=== PATIENT | female | born 1965 | race Caucasian/White ===

== ENCOUNTER 2020-08-22 01:29 | Inpatient (IN) | payer SELFPAY ==
[2020-08-22 01:43] VITALS: BP 131/91; PULSE 80; RESP 18; TEMP 36.7; O2SAT 96; BMI 17.4
[2020-08-22 02:42] LABS: Basophils % 0.6 %; Eosinophils # 0.1 10^3/uL (0.0-0.8); Eosinophils % 1.8 %; Hematocrit 45.7 % (37.0-47.0); Hemoglobin 14.7 g/dL (11.5-15.3); Lymphocytes # 2.1 10^3/uL (0.8-4.8); Lymphocytes % 40.6 %; Mean Corpuscular HGB Conc 32.2 g/dL (30.0-36.0); Mean Corpuscular Hemoglobin 31.8 pg (28.0-34.0); Mean Corpuscular Volume 98.9 fL (81-99); Mean Platelet Volume 9.8 fL (7.4-10.4); Monocytes # 0.5 10^3/uL (0.2-0.9); Monocytes % 9.2 %; Neutrophils # 2.44 10^3/uL (1.8-7.7); Neutrophils % 47.6 %; Nucleated Red Blood Cells % 0 %; Platelet Count 302 10^3/cmm (130-400); Red Blood Count 4.62 10^6/uL (4.1-5.3); Red Cell Distribution Width 13.3 % (12.1-15.1); White Blood Count 5.1 10^3/uL (4.0-10.0)
--- NOTE | 2020-08-22 02:50 | ED_ITS ---
HPI - Psych General: Chief Complaint: Psychiatric Symptoms Stated Complaint: 96 hr hold Time Seen by Provider: 08/22/20 02:05 History of Present Illness: HPI Narrative: 54-year-old female who is homeless. Evidently her dog was taken from her tonight in [facility]. She was at the police station, and asked for one of the deputies guns, so she could blow her head off . She comes in as a court ordered 96-hour hold because of the statements. She denies any pain or significant illness. She denies any medical problems. She does state she drinks daily. complaint: suicidal ideation and feels depressed Onset (ago): hour(s) Duration: constant History of same: No Relieving factors: none Exacerbating factors: none Context: recent alcohol abuse Associated psychiatric symptoms: depression and suicidal ideation Associated symptoms: Deny homicidal ideation Treatments prior to arrival: placed on mental health hold If self harm: admits thoughts of self harm Review of Systems Const: Denies: fever(s) Eyes: Denies: change in vision Card: Denies: chest pain or palpitations Resp: Denies: dyspnea, productive cough or non-productive cough GI: Denies: abdominal pain, nausea, vomiting or diarrhea Neuro: Denies: headache(s) Psych: Denies: homicidal ideation Physical Exam Const: GENERAL APPEARANCE: cooperative NUTRITIONAL APPEARANCE: thin ORIENTATION/CONSCIOUSNESS: Yes oriented to person, Yes oriented to place and Yes oriented to time HENMT: COMMON NORMALS: normocephalic, external ears normal and Normal external nose present HEAD & SCALP: normocephalic FACE & SINUS: normal facial exam NOSE: Normal external nose present and No nasal discharge present EXTERNAL EAR: Yes external ears normal Eye: COMMON NORMALS: Equal, round and reactive pupils present, EOMs intact bilaterally and conjunctivae normal EYELID: eyelids normal CONJUNCTIVA: Yes conjunctivae normal PUPIL: Yes Equal, round and reactive pupils present Neck/C-Spine: GENERAL: No tracheal deviation Chest: COMMONS NORMALS: normal inspection of the chest CHEST: No tenderness Resp: COMMON NORMALS: clear to auscultation bilaterally EFFORT & INSPECTION: No tachypneic, No respiratory distress, No retractions, No uses accessory muscles and No tracheal deviation AUSCULTATION: clear to auscultation bilaterally, no rhonchi, wheezes and lung sounds not diminished Cardio: COMMON NORMALS: regular rate and regular rhythm RATE: regular rate RHYTHM: regular rhythm HEART SOUNDS: no murmurs PERIPHERAL PULSES: radial pulses present GI: INSPECTION: No abdominal distension AUSCULTATION: No Hyperactive bowel sounds present and No Hypoactive bowel sounds present PALPATION: No Guarding due to palpation present (GI) and No Rigid due to palpation Neuro: SENSORIUM/ORIENTATION: Yes oriented to person, Yes oriented to place and Yes oriented to time Psych: COMMON NORMALS: mental status grossly normal Skin: COMMON NORMALS: no rashes or lesions noted GENERAL SKIN EXAM: no rashes or lesions noted Course Consultations: Consultation #1: yaniv Vital Signs: Vital signs: Vital Signs Temperature 98.0 F 08/22/20 01:43 Pulse Rate 80 08/22/20 01:43 Respiratory Rate 18 08/22/20 01:43 Blood Pressure 131/91 08/22/20 01:43 Pulse Oximetry 96 08/22/20 01:43 MDM - Psych MDM Narrative: Medical decision making narrative: 54-year-old female with suicidal ideation. She is medically stable. She does however have a urinary tract infection. She will be treated with oral antibiotics. Spoke with psychiatry. Lab Data: Labs: Lab Results 08/22/20 08/22/20 08/22/20 Range/Units 02:10 02:10 02:15 WBC 5.1 (4.0-10.0) 10^3/ uL RBC 4.62 (4.1-5.3) 10^6/u L Hgb 14.7 (11.5-15.3) g/dL Hct 45.7 (37.0-47.0) % MCV 98.9 (81-99) fL MCH 31.8 (28.0-34.0) pg MCHC 32.2 (30.0-36.0) g/dL RDW 13.3 (12.1-15.1) % Plt Count 302 (130-400) 10^3/c mm MPV 9.8 (7.4-10.4) fL Neut % (Auto) 47.6 % Lymph % (Auto) 40.6 % Tyler % (Auto) 9.2 % Eos % (Auto) 1.8 % Baso % (Auto) 0.6 % Neut # (Auto) 2.44 (1.8-7.7) 10^3/u L Lymph # (Auto) 2.1 (0.8-4.8) 10^3/u L Tyler # (Auto) 0.5 (0.2-0.9) 10^3/u L Eos # (Auto) 0.1 (0.0-0.8) 10^3/u L Baso # (Auto) 0.0 (0.0-0.1) 10^3/u L Nucleated RBC % (a uto) 0 % Nucleated RBCs # 0.0 /100WBC Sodium 144 (136-145) mmol/L Potassium 3.8 (3.5-5.1) mmol/L Chloride 109 H (98-107) mmol/L Carbon Dioxide 26 (22-29) mmol/L Anion Gap 12.8 (5-19) BUN 12 (6-20) mg/dL Creatinine 0.5 (0.5-0.9) mg/dL GFR Calculation 129.6 (90-130) mL/min Glucose 97 (65-115) mg/dL Calculated Osmolal ity 298 H (285-295) mOsm/k g Calcium 8.3 L (8.5-10.5) mg/dL Total Bilirubin 0.2 (0.15-1.2) mg/dL AST 18 (0-32) U/L ALT 17 (0-33) U/L Alkaline Phosphata se 123 H (35-105) IU/L Total Protein 7.9 (6.6-8.7) g/dL Albumin 4.4 (3.5-5.2) g/dL Globulin 3.5 (1.3-4.6) g/dL Urine Color (Yellow) Urine Appearance (CLEAR) Urine pH (5-7) Ur Specific Gravit y (1.005-1.030) Urine Protein (Negative) Urine Glucose (UA) (Normal) Urine Ketones (Negative) Urine Blood (Negative) Urine Nitrate (Negative) Urine Bilirubin (Negative) Urine Urobilinogen (Negative) mg/dL Ur Leukocyte Daina ase (Negative) Urine RBC (0-2) /hpf Urine WBC (0-5) /hpf Ur Squamous Epith Cells (0-5) /hpf Amorphous Sediment Urine Bacteria (NONE) /hpf Urine Mucus /hpf Salicylates < 0.3 L (3-10) mg/dL Urine Opiates Scre en (Negative) ng/mL Acetaminophen < 5.0 L (10-30) ug/mL Ur Barbiturates Sc reen (Negative) ng/mL Ur Phencyclidine S crn (Negative) ng/mL Ur Amphetamines Sc reen (Negative) ng/mL U Benzodiazepines Scrn (Negative) ng/mL Urine Cocaine Scre en (Negative) ng/mL U Marijuana (THC) Screen (Negative) ng/mL Ethyl Alcohol 117 H (0-10) mg/dL SARS-CoV-2 Ag (Rap id) Negative (Negative) 08/22/20 08/22/20 Range/Units 02:15 02:15 WBC (4.0-10.0) 10^3/ uL RBC (4.1-5.3) 10^6/u L Hgb (11.5-15.3) g/dL Hct (37.0-47.0) % MCV (81-99) fL MCH (28.0-34.0) pg MCHC (30.0-36.0) g/dL RDW (12.1-15.1) % Plt Count (130-400) 10^3/c mm MPV (7.4-10.4) fL Neut % (Auto) % Lymph % (Auto) % Tyler % (Auto) % Eos % (Auto) % Baso % (Auto) % Neut # (Auto) (1.8-7.7) 10^3/u L Lymph # (Auto) (0.8-4.8) 10^3/u L Tyler # (Auto) (0.2-0.9) 10^3/u L Eos # (Auto) (0.0-0.8) 10^3/u L Baso # (Auto) (0.0-0.1) 10^3/u L Nucleated RBC % (a uto) % Nucleated RBCs # /100WBC Sodium (136-145) mmol/L Potassium (3.5-5.1) mmol/L Chloride (98-107) mmol/L Carbon Dioxide (22-29) mmol/L Anion Gap (5-19) BUN (6-20) mg/dL Creatinine (0.5-0.9) mg/dL GFR Calculation (90-130) mL/min Glucose (65-115) mg/dL Calculated Osmolal ity (285-295) mOsm/k g Calcium (8.5-10.5) mg/dL Total Bilirubin (0.15-1.2) mg/dL AST (0-32) U/L ALT (0-33) U/L Alkaline Phosphata se (35-105) IU/L Total Protein (6.6-8.7) g/dL Albumin (3.5-5.2) g/dL Globulin (1.3-4.6) g/dL Urine Color Yellow (Yellow) Urine Appearance Sl hazy (CLEAR) Urine pH 5 (5-7) Ur Specific Gravit y 1.025 (1.005-1.030) Urine Protein Neg (Negative) Urine Glucose (UA) Norm (Normal) Urine Ketones Negative (Negative) Urine Blood Neg (Negative) Urine Nitrate Negative (Negative) Urine Bilirubin Neg (Negative) Urine Urobilinogen Norm (Negative) mg/dL Ur Leukocyte Daina ase 1+ H (Negative) Urine RBC 0-4 H (0-2) /hpf Urine WBC 15-25 H (0-5) /hpf Ur Squamous Epith Cells 25-40 H (0-5) /hpf Amorphous Sediment Not Reportable Urine Bacteria 2+ H (NONE) /hpf Urine Mucus 1+ /hpf Salicylates (3-10) mg/dL Urine Opiates Scre en Negative (Negative) ng/mL Acetaminophen (10-30) ug/mL Ur Barbiturates Sc reen Negative (Negative) ng/mL Ur Phencyclidine S crn Negative (Negative) ng/mL Ur Amphetamines Sc reen Positive H (Negative) ng/mL U Benzodiazepines Scrn Negative (Negative) ng/mL Urine Cocaine Scre en Negative (Negative) ng/mL U Marijuana (THC) Screen Positive H (Negative) ng/mL Ethyl Alcohol (0-10) mg/dL SARS-CoV-2 Ag (Rap id) (Negative) Discharge Plan Discharge Patient Disposition: Admitted As Inpatient Clinical Impression: Suicidal ideation Urinary tract infection Qualifiers: Urinary tract infection type: acute cystitis Hematuria presence: without hematuria Qualified Code(s): N30.00 - Acute cystitis without hematuria Condition: Stable Coding Level of Care Code ED Family Consultant for [facility] Fwd Exam Comprehensive
[2020-08-22 02:57] LABS: Amphetamines Screen Urine Positive (Negative); Barbiturates Screen Urine Negative (Negative); Benzodiazepines Screen Urine Negative (Negative); Cocaine Screen Urine Negative (Negative); Opiate Screen Urine Negative (Negative); PCP Screen Urine Negative (Negative); THC Screen Urine Positive (Negative)
[2020-08-22 02:58] LABS: Add Urine Microscopic? YES; Bilirubin Urine Neg (Negative); Blood Urine Neg (Negative); Glucose Urine UA Norm (Normal); Ketones Urine Negative (Negative); Leukocyte Esterase Urine 1+ (Negative); Nitrate Urine Negative (Negative); Protein Urine Neg (Negative); Specific Gravity, Urine 1.025 (1.005-1.030); Urine Appearance SL Hazy (CLEAR); Urine Color Yellow (Yellow); Urobilinogen Urine Norm (Negative); pH Urine 5 (5-7)
[2020-08-22 02:59] LABS: Add Urine Culture? No; Bacteria Urine 2+ /hpf; Mucus Urine 1+ /hpf; RBC Urine 0-4 /hpf (0-2); Squamous Epithelial Cell Urine 25-40 /hpf (0-5); WBC Urine 15-25 /hpf (0-5)
[2020-08-22 03:00] LABS: SARS Covid-2 Antigen Negative (Negative)
[2020-08-22 03:07] LABS: Alanine Aminotransferase 17 U/L (0-33); Albumin Level 4.4 g/dL (3.5-5.2); Alcohol Level 117 mg/dL (0-10); Alkaline Phosphatase 123 IU/L (35-105); Anion Gap 12.8 (5-19); Aspartate Amino Transferase 18 U/L (0-32); Blood Urea Nitrogen 12 mg/dL (6-20); Calcium 8.3 mg/dL (8.5-10.5); Carbon Dioxide 26 mmol/L (22-29); Chloride 109 mmol/L (98-107); Globulin 3.5 g/dL (1.3-4.6); Glomerular Filtration Rate 129.6 mL/min (90-130); Glucose 97 mg/dL (65-115); Osmolality Calculated 298 mOsm/kg (285-295); Potassium 3.8 mmol/L (3.5-5.1); Sodium 144 mmol/L (136-145); Total Bilirubin 0.2 mg/dL (0.15-1.2); Total Protein 7.9 g/dL (6.6-8.7)
[2020-08-22 03:16] LABS: Acetaminophen < 5.0 ug/mL (10-30); Salicylate < 0.3 mg/dL (3-10)
[2020-08-22] MEDS: sulfamethoxazole-trimeth DS 160-800 mg Tablet 1 TAB PO ×2 (03:48→08:22)
[2020-08-22 03:59] VITALS: BP 132/78; PULSE 112; RESP 18; O2SAT 99
[2020-08-22 04:02] VITALS: BP 120/85; PULSE 97; RESP 20; TEMP 36.6; O2SAT 97; BMI 17.4
[2020-08-22 06:00] VITALS: BMI 17.4
--- NOTE | 2020-08-22 12:24 | PM.NHP ---
Providers/Chief Complaint Admitting Physician: Kaya Solis DO Chief Complaint: 96 hr hold HPI NPU History of Present Illness Ifeanyi Valentine is a 54 year old female with no past psychiatric history presented to the emergency department by police after reportedly saying that she wanted to kill herself after she was from her dog. Patient has no past psychiatric hospitalizations and has no past suicide attempts and reports no past treatment for psychiatric symptoms. Patient states that she has never experienced any sustained depressive symptoms in the past. 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 After finding her way back home she states that someone had called the dairy manager on her stating that she was being combative. Patient states that she had recently used marijuana and methamphetamine but denies experiencing any agitation and also reports daily alcohol use of about a pint of vodka a day. Patient currently denying any depressive symptoms, denying any suicidal ideation. She denies any psychotic symptoms. She denies any alcohol withdrawal symptoms. Psychiatric review of systems is otherwise negative Patient reports interest in post discharge substance counseling/treatment but also would like to coordinate for care of her dog and states that she currently has no place to go. Review of Systems General: Reports: 10 or more systems reviewed and unremarkable except in HPI and below Meds NPU Home Medications Medication Instructions Recorded Confirmed Last Taken Type No Known Home Medications 08/22/20 08/22/20 Unknown History Allergies Allergy/AdvReac Type Severity Reaction Status Date / Time No Known Allergies Allergy Verified 08/22/20 01:43 [facility] NPU Other Psychiatric History: Other Psychiatric History: Denies any past psychiatric treatment Denies any history of psychiatric hospitalizations Denies any history of suicide attempts or self-harm behavior Mental Status Exam MSE Comments: Appears older than stated age, wearing glasses, appropriately dressed, calm, cooperative, occasionally tearful when talking about her dog Psychomotor activity is neither increased or decreased, no agitation Speech is normal rate and volume, spontaneous, fair articulation, not pressured I am upset, congruent affect not labile but occasionally tearful Alert, oriented to person, place, time, situation Memory and concentration appear to be intact per interview Intellectual functioning appears to be average based on vocabulary, interview Thought process, linear, no flight of ideas, no looseness of associations Thought content, no delusions, no hallucinations, no suicidal or homicidal ideation Insight and judgment appear to be intact Vitals/I&O/Wt Last Vital Signs Temp 97.8 F 08/22/20 04:02 Pulse 97 08/22/20 04:02 Resp 20 H 08/22/20 04:02 BP 120/85 08/22/20 04:02 Pulse Ox 97 08/22/20 04:02 Weight last 48 hrs Weight 56.699 kg Weight 56.699 kg Weight 56.699 kg Data NPU : 08/22/20 02:10 08/22/20 02:10 A&P Assessment and plan (1) Suicidal ideation: Status: Acute (2) Polysubstance abuse: Status: Acute (3) Alcohol intoxication: Status: Acute (4) Alcohol dependence: Status: Acute (5) Adjustment disorder with mixed disturbance of emotions and conduct: Status: Acute (6) Urinary tract infection: Status: Acute Qualifiers: Hematuria presence: without hematuria Urinary tract infection type: acute cystitis Qualified Code(s): N30.00 - Acute cystitis without hematuria Additional A&P Information Patient reportedly agitated in the context of an acute stressor with alcohol intoxication, recent use of methamphetamine and cannabis with no past psychiatric history and no current report of any psychiatric symptoms interested in post discharge substance treatment/counseling. INVOLUNTARY ADMIT to inpatient psychiatry START CIWA for any alcohol withdrawal symptoms START citalopram 20 mg daily targeting anxiety symptoms Coordinate with social science analyst for post discharge substance counseling/treatment Involuntary Hold Information 96 Hour Hold: 96 Hour Involuntary Admission: Yes 96 Hour Hold Ending Date: 08/27/20 96 Hour Hold Ending Time: 00:01 Attestations NPU Medical Necessity Statement*: Psychiatric hospitalization is indicated for medication stabilization, coordination for safe discharge Anticipate hospital stay to exceed 2 midnights Time Spent in Patient Care: Greater than 35 minutes (>than 50% of time spent in counselling and/or direct pt care on unit). Coding Level of Care Code Acute Tobacco Primer Machine Operator for Srin[facility] Keenan Diagnoses Suicidal ideation R45.851 Polysubstance abuse F19.10 Alcohol intoxication F10.929 Alcohol dependence F10.20 Adjustment disorder with mixed disturbance of emotions and conduct F43.25 Urinary tract infection N30.00 Hematuria presence: without hematuria Urinary tract infection type: acute cystitis
[2020-08-22] MEDS: citalopram 20 mg Tablet PO (13:46)
[2020-08-22 14:00] VITALS: BP 126/78; PULSE 64; RESP 18; TEMP 36.9; O2SAT 97
[2020-08-22] MEDS: nicotine 21 mg Patch 1 PATCH TRANSDERMA (15:56)
[2020-08-22] MEDS: nitrofurantoin SR (BID) 100 mg Capsule PO (17:19)
[2020-08-22] MEDS: trazodone 50 mg Tablet PO (20:09)
--- NOTE | 2020-08-22 20:47 | PC.NURSE ---
Pt requested sleep med, Trazodone 50mg po given.
[2020-08-22 21:57] VITALS: BP 125/84; PULSE 75; RESP 18; TEMP 36.8; O2SAT 96
[2020-08-23 05:43] VITALS: BP 118/76; PULSE 68; RESP 17; TEMP 36.9; O2SAT 97
[2020-08-23] MEDS: citalopram 20 mg Tablet PO (08:55)
[2020-08-23] MEDS: nitrofurantoin SR (BID) 100 mg Capsule PO ×2 (08:55→16:59)
[2020-08-23] MEDS: thiamine 100 mg Tablet PO (08:55)
[2020-08-23] MEDS: multivitamin therapeutic Tablet 1 TAB PO (08:55)
[2020-08-23] MEDS: folic acid 1 mg Tablet PO (08:55)
[2020-08-23] MEDS: nicotine 21 mg Patch 1 PATCH TRANSDERMA (10:22)
--- NOTE | 2020-08-23 12:25 | PM.NPN ---
Subjective NPU Subjective: Interval history: Denies any interval depressive symptoms, denies any suicidal ideation Denies any interval anxiety symptoms Reports being compliant with medication, denies any medication side effects Per staff report, no interval behavioral disturbances Mental Status Exam MSE Comments: Sitting up on her bed, calm, cooperative, appropriately groomed and dressed, good eye contact Psychomotor activity is neither increased or decreased, no agitation Speech is normal rate and volume, spontaneous, fair articulation, not pressured I feel a lot better, congruent affect, smiles appropriately at times during interview, not labile Alert, oriented to person, place, time, situation Memory and concentration appear to be intact per interview Intellectual functioning appears to be average based on vocabulary, interview Thought process, linear, no flight of ideas, no looseness of associations Thought content, no delusions, no hallucinations, no suicidal or homicidal ideation Insight and judgment appear to be intact Vitals/I&O/Wt Last Vital Signs Temp 98.4 F 08/23/20 05:43 Pulse 68 08/23/20 05:43 Resp 17 08/23/20 05:43 BP 118/76 08/23/20 05:43 Pulse Ox 97 08/23/20 05:43 Weight last 48 hrs Weight 56.699 kg Weight 56.699 kg Weight 56.699 kg Data NPU : 08/22/20 02:10 08/22/20 02:10 A&P Assessment and plan (1) Suicidal ideation: Status: Acute (2) Adjustment disorder with mixed disturbance of emotions and conduct: Status: Acute (3) Alcohol intoxication: Status: Acute (4) Alcohol dependence: Status: Acute (5) Polysubstance abuse: Status: Acute Additional A&P Information Reports significant improvement in mood, denies any alcohol withdrawal symptoms continue current medication, continue to monitor Involuntary Hold Information 96 Hour Hold: 96 Hour Involuntary Admission: Yes 96 Hour Hold Ending Date: 08/27/20 96 Hour Hold Ending Time: 00:01 Attestations NPU Medical Necessity Statement*: Continues to require psychiatric hospitalization for medication stabilization Coding Level of Care Code Acute Broadcast Operations Technician for Srin[facility] Keenan Diagnoses Suicidal ideation R45.851 Adjustment disorder with mixed disturbance of emotions and conduct F43.25 Alcohol intoxication F10.929 Alcohol dependence F10.20 Polysubstance abuse F19.10
[2020-08-23 14:00] VITALS: BP 118/72; PULSE 79; RESP 17; TEMP 36.7; O2SAT 97
[2020-08-23] MEDS: OLANZapine 5 mg ODT PO (15:55)
[2020-08-23] MEDS: trazodone 50 mg Tablet PO (21:29)
--- NOTE | 2020-08-23 21:50 | PC.NURSE ---
pt requested sleep aide, Trazodone 50mg po given.
[2020-08-23 21:57] VITALS: BP 108/72; PULSE 80; RESP 18; TEMP 35.9; O2SAT 96
[2020-08-24 06:00] VITALS: BP 108/73; PULSE 72; RESP 18; TEMP 36.4; O2SAT 97
[2020-08-24] MEDS: nitrofurantoin SR (BID) 100 mg Capsule PO (08:51)
[2020-08-24] MEDS: multivitamin therapeutic Tablet 1 TAB PO (08:51)
[2020-08-24] MEDS: thiamine 100 mg Tablet PO (08:51)
[2020-08-24] MEDS: citalopram 20 mg Tablet PO (08:51)
[2020-08-24] MEDS: folic acid 1 mg Tablet PO (08:51)
--- NOTE | 2020-08-24 09:21 | P.DS_ITS ---
Diagnoses at Discharge Discharge Diagnosis (1) Suicidal ideation: Status: Acute (2) Adjustment disorder with mixed disturbance of emotions and conduct: Status: Acute (3) Alcohol intoxication: Status: Acute (4) Alcohol dependence: Status: Acute (5) Polysubstance abuse: Status: Acute Reason for Visit Reason for Visit: 96 hr hold Hospital Course Hospital Course 54 year old female with no past psychiatric history presented to the emergency department by police after reportedly saying that she wanted to kill herself after she was from her dog. Patient has no past psychiatric hospitali zations and has no past suicide attempts and reports no past treatment for psychiatric symptoms. Patient denied any suicidal ideation at the time of her initial evaluation and denied any recent sustained depressive symptoms. 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 Patient quickly reconstituted and was started on citalopram 20 mg daily which she tolerated well with no reports of any medication side effects. Patient participate in unit milieu with no reports of any behavioral disturbances. At the time of discharge, patient was not suicidal and was not endorsing any psychiatric symptoms and did not appear to pose an imminent threat of harm to self or others. Low to moderate risk of harm to self given no current suicidal ideation and no current endorsement of psychiatric symptoms although her risk may be elevated if she continues to abuse alcohol and substances leading to unexpected, impulsive behavior. Risk mitigation included psychiatric hospitalization, medication stabilization, recommendation to abstain from the use of alcohol and substances as well as the need for compliance with medication, medication management and substance counseling/treatment follow-up. Patient was able to communicate her understanding of the need to abstain from use of alcohol and substances as well as the need for compliance with her medication, medication management and substance counseling/treatment in order to further mitigate her risk of harm to self and others. Involuntary Hold Information 96 Hour Hold: 96 Hour Involuntary Admission: Yes 96 Hour Hold Ending Date: 08/27/20 96 Hour Hold Ending Time: 00:01 Mental Status Exam MSE Comments: Appropriately groomed and dressed, polite, interactive, good eye contact Psychomotor activity is neither increased or decreased, no agitation Speech is normal rate and volume, spontaneous, fair articulation, not pressured I feel good, congruent affect, not labile Alert, oriented to person, place, time, situation Memory and concentration appear to be intact per interview Thought process, linear, no flight of ideas, no looseness of associations Thought content, no delusions, no hallucinations, no suicidal or homicidal ideation Insight and judgment appear to be intact Discharge Data Vitals: Last Vital Signs Temp 97.5 F L 08/24/20 06:00 Pulse 72 08/24/20 06:00 Resp 18 08/24/20 06:00 BP 108/73 08/24/20 06:00 Pulse Ox 97 08/24/20 06:00 Discharge Plan Discharge Patient Disposition: Home Condition: Stable Prescriptions: New multivitamin with folic acid [Thera] 400 mcg Tablet 1 tab PO DAILY Qty: 30 RF: 0 nitrofurantoin monohyd/m-cryst 100 mg Capsule 100 mg PO BID Qty: 14 RF: 0 citalopram 20 mg Tablet 20 mg PO DAILY Qty: 30 RF: 0 No Action No Known Home Medications RF: 0 Discharge Orders: Discharge Order (Routine); Ordered 08/24/20 Ordered By: Kaya Solis Referrals: [facility], [facility] [Other] (Walk-in Tuesdays or between 7:30am and 3pm for initial assessment. This is where you can get a enrollment management manager.) Discharge Diet: Regular Discharge Activity: Resume usual activity Patient Instructions: Opioid Safety Discharge Attestations NPU Time Spent in Discharge Care*: greater than 30 min Status at Discharge: Cognitive status at discharge: cognitively intact , Behavioral status at discharge: cooperative , Functional status at discharge: independent ambulation Overall status at discharge: patient is back to baseline Coding Level of Care Code Acute Chg FW DC note Diagnoses Suicidal ideation R45.851 Adjustment disorder with mixed disturbance of emotions and conduct F43.25 Alcohol intoxication F10.929 Alcohol dependence F10.20 Polysubstance abuse F19.10
[2020-08-24 09:36] VITALS: BP 108/73; PULSE 72; RESP 18; TEMP 36.4; O2SAT 97
== END 2020-08-24 11:19 | disposition home or self-care (01) | DRG 882 ==
LOC: ER 03:21 → NP 03:53
PROVIDERS: Admitting Provider Psychiatry & Neurology Psychiatry; Emergency Provider Emergency Medicine; Visit Provider Psychiatry & Neurology Psychiatry
DX: F43.25 Adjustment disorder with mixed disturbance of emotions and conduct (principal); R45.851 Suicidal ideations; N30.00 Acute cystitis without hematuria; F19.10 Other psychoactive substance abuse, uncomplicated; F10.229 Alcohol dependence with intoxication, unspecified; Y90.5 Blood alcohol level of 100-119 mg/100 ml
CPT/HCPCS: 80053; 80306; 80307; 81001; 85025; 87426; 99285

== ENCOUNTER 2022-10-17 22:14 | Inpatient (IN) | payer OTHER, SELFPAY ==
[2022-10-17 22:14] VITALS: BP 136/86; PULSE 85; RESP 18; TEMP 36.9; O2SAT 97; BMI 17.4
--- NOTE | 2022-10-17 22:34 | XRR_ITS ---
PROCEDURE INFORMATION: Exam: XR Chest Exam date and time: 10/17/2022 10:39 PM Age: 57 years old Clinical indication: Other: Si; Additional info: Psychiatric illness depression, drug abuse TECHNIQUE: Imaging protocol: Radiologic exam of the chest. Views: 1 view. COMPARISON: No relevant prior studies available. FINDINGS: Lungs: Emphysematous changes. No consolidation. Pleural spaces: Unremarkable. No pleural effusion. No pneumothorax. Heart/Mediastinum: Unremarkable. No cardiomegaly. Bones/joints: Unremarkable. XR/XR chest 1V portable [id number] IMPRESSION: 1. No acute findings. 2. Emphysematous changes.
--- NOTE | 2022-10-17 22:35 | ED_ITS ---
HPI - Alcohol General: Chief Complaint: Alcohol Stated Complaint: stress Time Seen by Provider: 10/17/22 22:16 History of Present Illness: Patient presents to the ER by EMS with complaints of feeling the world is stumbling around her. Patient has problems dealing with the outside world. Patient states she has been inpatient before to the stress unit here. Patient midst to drinking every day with her last drink being approximately 1 hour ago. Patient also admits to being a chronic meth user with her last meth use approximately 3 weeks ago but she still craves it every day. Patient is in for sure if she can deal with everything going on in her life at this moment and would like additional help. Patient denies any suicidal or homicidal ideations at this time. Review of Systems General: Reports: 10 or more systems reviewed and unremarkable except in HPI and below Physical Exam Const: COMMON NORMALS: no acute distress, average body habitus, patient oriented x3, no limitations, healthy appearing, alert and well nourished HENMT: COMMON NORMALS: normocephalic, atraumatic, hearing grossly normal bilaterally, external ears normal, Normal external nose present and moist oral mucous membranes HEAD & SCALP: normocephalic and atraumatic NOSE: Normal external nose present EXTERNAL EAR: Yes external ears normal Eye: COMMON NORMALS: Equal, round and reactive pupils present, EOMs intact bilaterally, conjunctivae normal and no scleral icterus CONJUNCTIVA: Yes conjunctivae normal PUPIL: Yes Equal, round and reactive pupils present Neck/C-Spine: COMMON NORMALS: no JVD Chest: COMMONS NORMALS: normal inspection of the chest and normal palpation of entire chest wall Resp: COMMON NORMALS: normal respiratory effort, No retractions, No use of accessory muscles and clear to auscultation bilaterally AUSCULTATION: clear to auscultation bilaterally Cardio: COMMON NORMALS: no JVD, regular rate, regular rhythm, S1 normal heart sound present, S2 normal heart sound present, No gallops present (Cardio), No clicks present (Cardio), No murmurs present (Cardio) and No rub (Cardio) RATE: regular rate RHYTHM: regular rhythm HEART SOUNDS: S1 normal heart sound present and S2 normal heart sound present GI: COMMON NORMALS: Normal to inspection, nondistended, normoactive bowel s ounds present, Soft to palpation, non-tender, No hepatosplenomegaly present and no masses PALPATION: Yes Soft to palpation and Yes No hepatosplenomegaly present : COMMON NORMALS: Yes no CVA tenderness BLADDER/KIDNEY EXAM: Yes no CVA tenderness Back/Pelvis: COMMON NORMALS: no CVA tenderness Neuro: COMMON NORMALS: patient oriented x3 SENSORIUM/ORIENTATION: Yes alert Course Vital Signs: Vital signs: Vital Signs Temperature 98.4 F 10/17/22 22:14 Pulse Rate 85 10/17/22 22:14 Respiratory Rate 18 10/17/22 22:14 Blood Pressure 136/86 10/17/22 22:14 Pulse Oximetry 97 10/17/22 22:14 Oxygen Delivery Me thod Room Air 10/17/22 22:14 MDM - Alcohol Medical Decision Making Patient presents to the ER by EMS with complaints of hopelessness and depression and admits to being an alcoholic who uses meth frequently. Patient is unable to deal with the world around her. And wants to come inpatient for help. Physical exam was performed normal psychiatric labs were obtained anticipate inpatient admission. Dr. Obrien was consulted and he agreed to place the patient inpatient for further evaluation and treatment. Differential Diagnosis Unlikely alcohol withdrawal delirium, hypomagnesemia, alcohol intoxication, alcohol ketoacidosis, alcohol withdrawal syndrome or alcohol withdrawal seizure Medical Records I reviewed the patient's medical records. Lab Data I reviewed the patient's lab results. 10/17/22 22:45 10/17/22 22:45 Laboratory Results WBC 8.89 10^3/uL (3.29-11.43) 10/17/22 22:45 RBC 4.47 10^6/uL (3.85-5.65) 10/17/22 22:45 Hgb 14.70 g/dL (11.27-16.99) 10/17/22 22:45 Hct 43.8 % (36-47) 10/17/22 22:45 MCV 98.0 fl (85-98) 10/17/22 22:45 MCH 32.9 pg (27-33) 10/17/22 22:45 MCHC 33.6 g/dL (30-55) 10/17/22 22:45 RDW 13.3 % (12.1-15.1) 10/17/22 22:45 Plt Count 293 10^3/cmm (157-399) 10/17/22 22:45 MPV 9.8 fL (7.4-10.4) 10/17/22 22:45 Neut % (Auto) 66.5 % 10/17/22 22:45 Lymph % (Auto) 23.7 % 10/17/22 22:45 [place] % (Auto) 8.5 % 10/17/22 22:45 Eos % (Auto) 0.8 % 10/17/22 22:45 Baso % (Auto) 0.3 % 10/17/22 22:45 Neut # (Auto) 5.90 10^3/uL (1.8-7.7) 10/17/22 22:45 Lymph # (Auto) 2.1 10^3/uL (0.8-4.8) 10/17/22 22:45 [place] # (Auto) 0.8 10^3/uL (0.2-0.9) 10/17/22 22:45 Eos # (Auto) 0.1 10^3/uL (0.0-0.8) 10/17/22 22:45 Baso # (Auto) 0.0 10^3/uL (0.0-0.1) 10/17/22 22:45 Nucleated RBC % (auto) 0 % 10/17/22 22:45 Nucleated RBCs # 0.0 /100WBC 10/17/22 22:45 Sodium 147 mmol/L (136-145) H 10/17/22 22:45 Potassium 3.9 mmol/L (3.5-5.1) 10/17/22 22:45 Chloride 111 mmol/L (98-107) H 10/17/22 22:45 Carbon Dioxide 23 mmol/L (22-29) 10/17/22 22:45 Anion Gap 16.9 (5-19) 10/17/22 22:45 BUN 19 mg/dL (6-20) 10/17/22 22:45 Creatinine 0.7 mg/dL (0.5-0.9) 10/17/22 22:45 GFR Calculation 86.9 mL/min (90-130) L 10/17/22 22:45 Glucose 114 mg/dL (65-115) 10/17/22 22:45 Calculated Osmolality 307 mOsm/kg (285-295) H 10/17/22 22:45 Calcium 8.6 mg/dL (8.5-10.5) 10/17/22 22:45 Total Bilirubin 0.2 mg/dL (0.15-1.2) 10/17/22 22:45 AST 28 U/L (0-32) 10/17/22 22:45 ALT 21 U/L (0-33) 10/17/22 22:45 Alkaline Phosphatase 106 U/L (35-105) H 10/17/22 22:45 Total Protein 8.3 g/dL (6.6-8.7) 10/17/22 22:45 Albumin 4.8 g/dL (3.5-5.2) 10/17/22 22:45 Globulin 3.5 g/dL (1.3-4.6) 10/17/22 22:45 HCG, Qual Negative (Negative) 10/17/22 22:53 Urine Color Yellow (Yellow) 10/17/22 22:53 Urine Appearance Sl hazy (CLEAR) A 10/17/22 22:53 Urine pH 5 (5-7) 10/17/22 22:53 Ur Specific [place] 1.030 (1.005-1.030) 10/17/22 22:53 Urine Protein Neg (Negative) 10/17/22 22:53 Urine Glucose (UA) Norm (Normal) 10/17/22 22:53 Urine Ketones Negative (Negative) 10/17/22 22:53 Urine Blood Neg (Negative) 10/17/22 22:53 Urine Nitrate Negative (Negative) 10/17/22 22:53 Urine Bilirubin Neg (Negative) 10/17/22 22:53 Urine Urobilinogen 1 mg/dL (Negative) H 10/17/22 22:53 Ur Leukocyte Esterase Trace (Negative) H 10/17/22 22:53 Urine RBC None /hpf (0-2) 10/17/22 22:53 Urine WBC 0-4 /hpf (0-5) H 10/17/22 22:53 Ur Squamous Epith Cells 15-25 /hpf (0-5) H 10/17/22 22:53 Amorphous Sediment Not Reportable 10/17/22 22:53 Urine Bacteria 2+ /hpf (NONE) H 10/17/22 22:53 Urine Mucus 2+ /hpf 10/17/22 22:53 Salicylates < 0.3 mg/dL (3-10) L 10/17/22 22:45 Urine Opiates Screen Negative ng/mL (Negative) 10/17/22 22:53 Acetaminophen < 5.0 ug/mL (10-30) L 10/17/22 22:45 Ur Barbiturates Screen Negative ng/mL (Negative) 10/17/22 22:53 Ur Phencyclidine Scrn Negative ng/mL (Negative) 10/17/22 22:53 Ur Amphetamines Screen Negative ng/mL (Negative) 10/17/22 22:53 U Benzodiazepines Scrn Negative ng/mL (Negative) 10/17/22 22:53 Urine Cocaine Screen Negative ng/mL (Negative) 10/17/22 22:53 U Marijuana (THC) Screen Positive ng/mL (Negative) H 10/17/22 22:53 Ethyl Alcohol 227 mg/dL (0-10) H 10/17/22 22:45 Discharge Plan Discharge Patient Disposition: Admitted As Inpatient Clinical Impression: Polysubstance abuse, Depression, Stress Condition: Stable Prescriptions: No Action citalopram 20 mg Tablet 20 mg PO DAILY Qty: 30 0RF nitrofurantoin monohyd/m-cryst 100 mg Capsule 100 mg PO BID Qty: 14 0RF Thera 400 mcg Tablet 1 tab PO DAILY Qty: 30 0RF Referrals: Ofelia Obrien MD [Primary Care Provider] - Coding Level of Care Code ED Tactical Deception Plans Officer for Srinivas Keenan
[2022-10-17] MEDS: nicotine 21 mg Patch 1 PATCH TRANSDERMA (22:37)
[2022-10-17 22:52] LABS: Basophils % 0.3 %; Eosinophils # 0.1 10^3/uL (0.0-0.8); Eosinophils % 0.8 %; Hematocrit 43.8 % (36-47); Lymphocytes # 2.1 10^3/uL (0.8-4.8); Lymphocytes % 23.7 %; Mean Corpuscular HGB Conc 33.6 g/dL (30-55); Mean Corpuscular Hemoglobin 32.9 pg (27-33); Mean Platelet Volume 9.8 fL (7.4-10.4); Monocytes # 0.8 10^3/uL (0.2-0.9); Monocytes % 8.5 %; Neutrophils % 66.5 %; Nucleated Red Blood Cells % 0 %; Platelet Count 293 10^3/cmm (157-399); Red Blood Count 4.47 10^6/uL (3.85-5.65); Red Cell Distribution Width 13.3 % (12.1-15.1); White Blood Count 8.89 10^3/uL (3.29-11.43)
[2022-10-17 23:00] LABS: HCG Qualitative Urine. Negative (Negative)
--- NOTE | 2022-10-17 23:05 | PC.NURSE ---
Upon arrival, RN into room to assess pt. Pt denies SI, SH, HI several times adamantly. No visual SH leija on body. Pt admits to ETOH intoxication several times. Pt originally yelling and upset on arrival, stating You can't keep me here! I came here because I wanted to and if I want a damn cigarette I will smoke one! RN told pt to calm down and explain what is wrong before trying to leave. Pt then began to quiet down and explained situation at normal voice level. Pt cried while explaining. Pt is now calm and cooperative after nicotine patch placement. Pt still appears manic but calms down easily with instruction. MD at bedside during this conversation.
[2022-10-17 23:07] LABS: Bilirubin Urine Neg (Negative); Blood Urine Neg (Negative); Glucose Urine UA Norm (Normal); Ketones Urine Negative (Negative); Leukocyte Esterase Urine Trace (Negative); Nitrate Urine Negative (Negative); Protein Urine Neg (Negative); Urine Appearance SL Hazy (CLEAR); Urine Color Yellow (Yellow); Urobilinogen Urine 1 mg/dL (Negative); pH Urine 5 (5-7)
[2022-10-17 23:08] LABS: Add Urine Culture? No; Add Urine Microscopic? YES; Bacteria Urine 2+ /hpf; Mucus Urine 2+ /hpf; Squamous Epithelial Cell Urine 15-25 /hpf (0-5); WBC Urine 0-4 /hpf (0-5)
[2022-10-17 23:10] LABS: Amphetamines Screen Urine Negative (Negative); Barbiturates Screen Urine Negative (Negative); Benzodiazepines Screen Urine Negative (Negative); Cocaine Screen Urine Negative (Negative); Opiate Screen Urine Negative (Negative); PCP Screen Urine Negative (Negative); THC Screen Urine Positive (Negative)
[2022-10-17 23:17] LABS: Alanine Aminotransferase 21 U/L (0-33); Albumin Level 4.8 g/dL (3.5-5.2); Alcohol Level 227 mg/dL (0-10); Alkaline Phosphatase 106 U/L (35-105); Anion Gap 16.9 (5-19); Aspartate Amino Transferase 28 U/L (0-32); Blood Urea Nitrogen 19 mg/dL (6-20); Calcium 8.6 mg/dL (8.5-10.5); Carbon Dioxide 23 mmol/L (22-29); Chloride 111 mmol/L (98-107); Globulin 3.5 g/dL (1.3-4.6); Glomerular Filtration Rate 86.9 mL/min (90-130); Glucose 114 mg/dL (65-115); Osmolality Calculated 307 mOsm/kg (285-295); Potassium 3.9 mmol/L (3.5-5.1); Sodium 147 mmol/L (136-145); Total Bilirubin 0.2 mg/dL (0.15-1.2); Total Protein 8.3 g/dL (6.6-8.7)
[2022-10-17 23:21] LABS: Acetaminophen < 5.0 ug/mL (10-30); Salicylate < 0.3 mg/dL (3-10)
[2022-10-17 23:45] VITALS: BP 127/82; PULSE 77; RESP 16; TEMP 36.7; O2SAT 94
[2022-10-18 00:04] VITALS: BP 136/86; PULSE 85; RESP 18; TEMP 36.9; O2SAT 97
[2022-10-18] MEDS: hyDROXYzine 25 mg Capsule 50 MG PO (00:26)
--- NOTE | 2022-10-18 00:38 | PC.NURSE ---
Pt arrived to NPU w/RN and security at side. Pt presents tearful and anxious stating she needs to go to [facility], and that is why she is here. She states that she is constantly surrounded by alcohol and meth, and would like to go to a program to stop using them. Assessment completed w/o difficulty, pt is currently taking a shower.
[2022-10-18 06:00] VITALS: BP 143/88; PULSE 82; RESP 16; O2SAT 95
[2022-10-18] MEDS: multivitamin therapeutic Tablet 1 TAB PO (09:03)
[2022-10-18] MEDS: folic acid 1 mg Tablet PO (09:03)
[2022-10-18] MEDS: LORazepam 2 mg Tablet PO ×3 (09:03→20:51)
[2022-10-18] MEDS: thiamine 100 mg Tablet PO (09:03)
[2022-10-18 13:23] VITALS: BP 124/83; PULSE 83; RESP 16; TEMP 36.8; O2SAT 96
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
[2022-10-18 20:37] VITALS: BP 156/94; PULSE 79; RESP 16; TEMP 36.3; O2SAT 95
[2022-10-19 06:00] VITALS: BP 131/90; PULSE 77; RESP 16; TEMP 36.6; O2SAT 98
[2022-10-19] MEDS: thiamine 100 mg Tablet PO (09:23)
[2022-10-19] MEDS: folic acid 1 mg Tablet PO (09:23)
[2022-10-19] MEDS: multivitamin therapeutic Tablet 1 TAB PO (09:23)
[2022-10-19] MEDS: nicotine 21 mg Patch 1 PATCH TRANSDERMA (10:02)
--- NOTE | 2022-10-19 12:13 | P.NPUPN_ITS ---
Subjective NPU Subjective: Patient presented today reporting that she is feeling a bit better. We discussed discussion she had with other members of the treatment team about discharge and we discussed the fact that she did not appear to be ready for discharge. She reported being very frightened about her future use and brought up the prospect of Antabuse. We discussed the risk benefits and alternatives of Celexa which she has been on and naltrexone which she has not and she understood and agreed to proceed as is documented in this note and we agreed to take discharge planning a day at a time. Mental Status Exam MSE Comments: This is an underweight white female in hospital scrubs with limited grooming and eye contact. No abnormal movements except for mild psychomotor retardation. Cooperative with exam and mild to moderate distress. Speech was slightly decreased rate and volume. Mood described as depressed, affect congruent. Thought process organized. Thought content: Patient denied suicidal or homici enoch ideation, there were no delusions reported or noted, she denied any auditory or visual hallucinations. Attention and concentration were intact and memory appeared mostly reliable but none were formally tested. She is alert and oriented x3. Insight and judgment are improving and impulse control is impaired. . Vitals/I&O/Wt Last Vital Signs Temp 97.8 F 10/19/22 06:00 Pulse 77 10/19/22 06:00 Resp 16 10/19/22 06:00 BP 131/90 10/19/22 06:00 Pulse Ox 98 10/19/22 06:00 O2 Del Method Room Air 10/18/22 13:23 Weight last 48 hrs Weight 56.699 kg Data NPU 10/17/22 22:45 10/17/22 22:45 A&P Assessment and plan (1) Depressive disorder: (2) Alcohol dependence: (3) Anxiety disorder: Plan 57-year-old white female with likely alcohol dependence admitted intoxicated with depressed mood and anxiety while having alcohol withdrawal with the current history of methamphetamine use as well. . 1 . Recommend sober living treatment at the highest level of care to which the patient is willing commit. 2. Encourage individual, group and milieu therapy. 3. Continue q-15 minute checks for safety.? 4. [facility] protocol Consider SSRI. 5. Start Celexa 20 mg p.o. daily and naltrexone 50 mg p.o. daily. Involuntary Hold Information 96 Hour Hold: 96 Hour Involuntary Admission: No 96 Hour Hold Ending Date: 08/27/20 96 Hour Hold Ending Time: 00:01 Attestations NPU Medical Necessity Statement*: Inpatient hospitalization is medically necessary and deemed to be the clinically appropriate intervention at this time. We will monitor and initiate medications while making changes as indicated. The patient's likely length of stay is 2-5 days. Coding Level of Care Code Acute Code for [facility] Fwd Diagnoses Depressive disorder F32.A Alcohol dependence F10.20 Anxiety disorder F41.9
[2022-10-19 14:00] VITALS: BP 143/98; PULSE 95; RESP 17; TEMP 36.9; O2SAT 97
[2022-10-19] MEDS: LORazepam 2 mg Tablet PO (16:29)
[2022-10-19] MEDS: trazodone 50 mg Tablet PO (19:36)
[2022-10-19 20:18] VITALS: BP 119/82; PULSE 98; RESP 18; TEMP 36.7; O2SAT 97
--- NOTE | 2022-10-20 06:41 | PC.NURSE ---
pt resting resp 18
[2022-10-20] MEDS: naltrexone hcl 50 mg Tablet PO (08:41)
[2022-10-20] MEDS: multivitamin therapeutic Tablet 1 TAB PO (08:41)
[2022-10-20] MEDS: citalopram 20 mg Tablet PO (08:41)
[2022-10-20] MEDS: thiamine 100 mg Tablet PO (08:41)
[2022-10-20] MEDS: folic acid 1 mg Tablet PO (08:41)
[2022-10-20] MEDS: nicotine 21 mg Patch 1 PATCH TRANSDERMA (08:43)
--- NOTE | 2022-10-20 12:05 | W.PM.NPUPNS ---
Subjective NPU Subjective: Patient presented today reporting that she wanted to go home. On a couple occasions she flirted with discharging AMA. It took multiple staff members talking to her about the consequences of an AMA discharge to get her to the stay. Part of her concern was related to the phones within the hospital being down and her not being able to talk to someone outside of the hospital and especially talk to her roommate about whether her dog is being taken care of. We agreed to discharge in the morning and she reluctantly held on. Mental Status Exam MSE Comments: This is an underweight white female in hospital scrubs with limited grooming and eye contact. No abnormal movements except for mild psychomotor retardation. Cooperative with exam and mild distress, but moderate distress when discharge was discussed based on concerns for her dog. Speech was slightly decreased rate and volume. Mood described as depressed, affect congruent. Thought process organized. Thought content: Patient denied suicidal or homicidal ideation, there were no delusions reported or noted, she denied any auditory or visual hallucinations. Attention and concentration were intact and memory appeared mostly reliable but none were formally tested. She is alert and oriented x3. Insight and judgment are improving and impulse control is impaired. . Vitals/I&O/Wt Last Vital Signs Temp 98.1 F 10/19/22 20:18 Pulse 98 10/19/22 20:18 Resp 18 10/19/22 20:18 BP 119/82 10/19/22 20:18 Pulse Ox 97 10/19/22 20:18 O2 Del Method Room Air 10/19/22 14:00 Data NPU 10/17/22 22:45 10/17/22 22:45 A&P Assessment and plan (1) Depressive disorder: (2) Alcohol dependence: (3) Anxiety disorder: Plan 57-year-old white female with likely alcohol dependence admitted intoxicated with depressed mood and anxiety while having alcohol withdrawal with the current history of methamphetamine use as well. . 1 . Recommend sober living treatment at the highest level of care to which the patient is willing commit. 2. Encourage individual, group and milieu therapy. 3. Continue q-15 minute checks for safety.? 4. [facility] protocol Consider SSRI. 5. Started Celexa 20 mg p.o. daily and naltrexone 50 mg p.o. daily. 6. Tentative plan for discharge in the morning. Involuntary Hold Information 96 Hour Hold: 96 Hour Involuntary Admission: No 96 Hour Hold Ending Date: 08/27/20 96 Hour Hold Ending Time: 00:01 Attestations NPU Medical Necessity Statement*: Inpatient hospitalization is medically necessary and deemed to be the clinically appropriate intervention at this time. We will monitor and initiate medications while making changes as indicated. The patient's likely length of stay is 1-3 days. Coding Level of Care Code Acute Code for [facility] Fwd Diagnoses Depressive disorder F32.A Alcohol dependence F10.20 Anxiety disorder F41.9
[2022-10-20 14:00] VITALS: BP 135/84; PULSE 93; RESP 18; TEMP 36.8; O2SAT 96
[2022-10-20] MEDS: hyDROXYzine 25 mg Capsule 50 MG PO (17:04)
[2022-10-20] MEDS: trazodone 50 mg Tablet PO (19:32)
[2022-10-20 19:34] VITALS: BP 129/83; PULSE 88; RESP 17; TEMP 36.8; O2SAT 96
[2022-10-21 06:00] VITALS: RESP 16
--- NOTE | 2022-10-21 06:22 | W.PM.NPUDCS ---
Diagnoses at Discharge Discharge Diagnosis (1) Depressive disorder: Status: Acute (2) Alcohol dependence: Status: Acute (3) Anxiety disorder: Status: Acute Reason for Visit Reason for Visit: stress Brief History: History of Present Illness Ifeanyi Valentine is a 57 year old female who presented to the ER by EMS after she had endorsed being depressed. She had reported having drank a significant amount of alcohol for the past 40 years and reports having used methamphetamine as well in the last week. Patient's blood alcohol level was 227 on admission. The patient had been admitted to the neuropsychiatric unit for further evaluation and treatment. She reports that she needs help with managing her mood and with getting clean as she reports all efforts to stop alcohol have been unsuccessful. She endorses some feelings of hopelessness. She had reported drinking over a pint of day of alcohol. 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 Patient had endorsed a past history of homelessness and stated that this idea had upset her greatly. She denies any suicidal ideation or homicidal ideation on admission. She denies any history of franklin. She denies any current psychotic symptoms. She had reported a significant history of seizures when withdrawing off of alcohol. Inpatient psychiatric history: She reports 2 previous inpatient hospitalizations with the most recent hospitalization having occurred in August 2020 at the neuropsych[facility] in [place]. Outpatient psychiatric history: None currently she reported having a previous history of bipolar disorder and ADHD, but states she has not been in treatment for several years. 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 She had also reported a history of alcohol abuse since the age of 16 with a past history of sobriety having occurred when she was incarcerated. She had reported previous inpatient substance abuse treatment in [place] more than 5 years ago. She reports a history of significant alcohol withdrawal symptoms. Legal history: Some history of incarceration for lack of child support in the past but no legal problems currently. Social history: Patient was born in [place] and raised there. She had reported that her biological father had raised her after her mother had abandoned the family. She states her biological mother is now . She reports having 1 adult child who she has limited contact with. She had endorsed having an unhappy childhood. She has stated that she had a history of dropping out of high school and obtaining her degree. 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 She had reported a past history of homelessness. 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 Hospital Course Hospital Course She slowly acclimated to the individual, group and milieu therapies provided. She presented reporting depression and suicidal thoughts with significant drug use including alcohol and methamphetamine. She was started Celexa and ReVia. Additionally thiamine, Vistaril and trazodone were added. She worked with the social work team to get aftercare including sober living treatment. She had significant improvement and was able to contract for safety outside of the hospital prior to discharge. During the hospitalization, patient had routine laboratory studies which were within normal limits except for few outliers. Additionally there was a general medical evaluation which was also within normal limits and revealed no new acute processes. Discharge Summary: At the time of discharge, lethality was denied and no psychosis was noted. Mood and anxiety were well managed. Patient endorsed a plan to avoid all drugs of abuse and follow-up with the aftercare recommendations of the treatment team. Patient was evaluated and deemed to be absent credible lethality, and had achieved the maximum benefit from an inpatient hospitalization, so was discharged. Involuntary Hold Information 96 Hour Hold: 96 Hour Involuntary Admission: No 96 Hour Hold Ending Date: 08/27/20 96 Hour Hold Ending Time: 00:01 Mental Status Exam MSE Comments: This is an underweight white female in hospital scrubs with limited grooming and eye contact. No abnormal movements except for mild psychomotor retardation. Cooperative with exam in no acute distress. Speech was slightly decreased rate and volume. Mood described as better, affect congruent. Thought process organized. Thought content: Patient denied suicidal or homicidal ideation, there were no delusions reported or noted, she denied any auditory or visual hallucinations. Attention and concentration were intact and memory appeared mostly reliable but none were formally tested. She is alert and oriented x3. Insight and judgment are improving and impulse control is impaired. . Discharge Data Studies Completed and Pending: Completed Studies During Hospitalization Category Date Time Status XR chest 1V andrade ble [id number] Stat Exams 10/17/22 22:34 Completed Radiology Impressions Chest X-Ray 10/17/22 22:34 IMPRESSION: 1. No acute findings. 2. Emphysematous changes. Laboratory Results WBC 8.89 10^3/uL (3.2 9-11.43) 10/17/22 22:45 RBC 4.47 10^6/uL (3.8 5-5.65) 10/17/22 22:45 Hgb 14.70 g/dL (11.27 -16.99) 10/17/22 22:45 Hct 43.8 % (36-47) 10/17/22 22:45 MCV 98.0 fl (85-98) 10/17/22 22:45 MCH 32.9 pg (27-33) 10/17/22 22:45 MCHC 33.6 g/dL (30-55) 10/17/22 22:45 RDW 13.3 % (12.1-15.1 ) 10/17/22 22:45 Plt Count 293 10^3/cmm (157 -399) 10/17/22 22:45 MPV 9.8 fL (7.4-10.4) 10/17/22 22:45 Neut % (Auto) 66.5 % 10/17/22 22:45 Lymph % (Auto) 23.7 % 10/17/22 22:45 [place] % (Auto) 8.5 % 10/17/22 22:45 Eos % (Auto) 0.8 % 10/17/22 22:45 Baso % (Auto) 0.3 % 10/17/22 22:45 Neut # (Auto) 5.90 10^3/uL (1.8 -7.7) 10/17/22 22:45 Lymph # (Auto) 2.1 10^3/uL (0.8- 4.8) 10/17/22 22:45 [place] # (Auto) 0.8 10^3/uL (0.2- 0.9) 10/17/22 22:45 Eos # (Auto) 0.1 10^3/uL (0.0- 0.8) 10/17/22 22:45 Baso # (Auto) 0.0 10^3/uL (0.0- 0.1) 10/17/22 22:45 Nucleated RBC % (a uto) 0 % 10/17/22 22:45 Nucleated RBCs # 0.0 /100WBC 10/17/22 22:45 Sodium 147 mmol/L (136-1 45) H 10/17/22 22:45 Potassium 3.9 mmol/L (3.5-5 .1) 10/17/22 22:45 Chloride 111 mmol/L (98-10 7) H 10/17/22 22:45 Carbon Dioxide 23 mmol/L (22-29) 10/17/22 22:45 Anion Gap 16.9 (5-19) 10/17/22 22:45 BUN 19 mg/dL (6-20) 10/17/22 22:45 Creatinine 0.7 mg/dL (0.5-0. 9) 10/17/22 22:45 GFR Calculation 86.9 mL/min (90-1 30) L 10/17/22 22:45 Glucose 114 mg/dL (65-115 ) 10/17/22 22:45 Calculated Osmolal ity 307 mOsm/kg (285- 295) H 10/17/22 22:45 Calcium 8.6 mg/dL (8.5-10 .5) 10/17/22 22:45 Total Bilirubin 0.2 mg/dL (0.15-1 .2) 10/17/22 22:45 AST 28 U/L (0-32) 10/17/22 22:45 ALT 21 U/L (0-33) 10/17/22 22:45 Alkaline Phosphata se 106 U/L (35-105) H 10/17/22 22:45 Total Protein 8.3 g/dL (6.6-8.7 ) 10/17/22 22:45 Albumin 4.8 g/dL (3.5-5.2 ) 10/17/22 22:45 Globulin 3.5 g/dL (1.3-4.6 ) 10/17/22 22:45 HCG, Qual Negative (Negati ve) 10/17/22 22:53 Urine Color Yellow (Yellow) 10/17/22 22:53 Urine Appearance Sl hazy (CLEAR) A 10/17/22 22:53 Urine pH 5 (5-7) 10/17/22 22:53 Ur Specific Gravit y 1.030 (1.005-1.0 30) 10/17/22 22:53 Urine Protein Neg (Negative) 10/17/22 22:53 Urine Glucose (UA) Norm (Normal) 10/17/22 22:53 Urine Ketones Negative (Negati ve) 10/17/22 22:53 Urine Blood Neg (Negative) 10/17/22 22:53 Urine Nitrate Negative (Negati ve) 10/17/22 22:53 Urine Bilirubin Neg (Negative) 10/17/22 22:53 Urine Urobilinogen 1 mg/dL (Negative ) H 10/17/22 22:53 Ur Leukocyte Daina ase Trace (Negative) H 10/17/22 22:53 Urine RBC None /hpf (0-2) 10/17/22 22:53 Urine WBC 0-4 /hpf (0-5) H 10/17/22 22:53 Ur Squamous Epith Cells 15-25 /hpf (0-5) H 10/17/22 22:53 Amorphous Sediment Not Reportable 10/17/22 22:53 Urine Bacteria 2+ /hpf (NONE) H 10/17/22 22:53 Urine Mucus 2+ /hpf 10/17/22 22:53 Salicylates < 0.3 mg/dL (3-10 ) L 10/17/22 22:45 Urine Opiates Scre en Negative ng/mL (N egative) 10/17/22 22:53 Acetaminophen < 5.0 ug/mL (10-3 0) L 10/17/22 22:45 Ur Barbiturates Sc reen Negative ng/mL (N egative) 10/17/22 22:53 Ur Phencyclidine S crn Negative ng/mL (N egative) 10/17/22 22:53 Ur Amphetamines Sc reen Negative ng/mL (N egative) 10/17/22 22:53 U Benzodiazepines Scrn Negative ng/mL (N egative) 10/17/22 22:53 Urine Cocaine Scre en Negative ng/mL (N egative) 10/17/22 22:53 U Marijuana (THC) Screen Positive ng/mL (N egative) H 10/17/22 22:53 Ethyl Alcohol 227 mg/dL (0-10) H 10/17/22 22:45 Vitals: Last Vital Signs Temp 98.3 F 10/20/22 19:34 Pulse 88 10/20/22 19:34 Resp 16 10/21/22 06:00 BP 129/83 10/20/22 19:34 Pulse Ox 96 10/20/22 19:34 O2 Del Method Room Air 10/20/22 19:34 Discharge Plan Discharge Patient Disposition: Home Condition: Stable Prescriptions: New trazodone 50 mg Tablet 50 mg PO BEDTIME PRN (Reason: Sleep) 30 Days Qty: 30 1RF naltrexone 50 mg Tablet 50 mg PO DAILY 30 Days Qty: 30 1RF citalopram 20 mg Tablet 20 mg PO DAILY 30 Days Qty: 30 1RF hydroxyzine pamoate 25 mg Capsule 50 mg PO Q6H PRN (Reason: Anxiety) 30 Days Qty: 120 1RF Vitamin B-1 (mononitrate) 100 mg Tablet 100 mg PO DAILY 30 Days Qty: 30 1RF Discharge Orders: Discharge Order (Routine); Ordered 10/21/22 Ordered By: Jayant Obrien Referrals: [facility] [Other] [facility] [Outside] - 10/25/22 2:00 pm (Initial appointment scheduled for 10/25/22 @ 2:00 pm. ) Ofelia Obrien MD [Primary Care Provider] - Discharge Diet: Regular Discharge Activity: Resume usual activity Patient Instructions: Depression (DC), Help Prevent Suicide (DC), Suicide Prevention (ED), Opioid Safety Discharge Attestations NPU Time Spent in Discharge Care*: less than 30 min Specific Discharge Activities: Specific discharge activities: educating patient, discussing with caseworker protective services/social workers/dc planners, documenting/other paperwork and evaluating patient/reviewing data Status at Discharge: Cognitive status at discharge: cognitively intact, Behavioral status at discharge: cooperative, Coding Level of Care Code Acute Chg FW DC note Diagnoses Depressive disorder F32.A Alcohol dependence F10.20 Anxiety disorder F41.9
--- NOTE | 2022-10-21 06:34 | PC.NURSE ---
pt resting vs not taken resp 16
[2022-10-21 08:10] VITALS: RESP 16
[2022-10-21] MEDS: thiamine 100 mg Tablet PO (08:23)
[2022-10-21] MEDS: multivitamin therapeutic Tablet 1 TAB PO (08:23)
[2022-10-21] MEDS: citalopram 20 mg Tablet PO (08:23)
[2022-10-21] MEDS: naltrexone hcl 50 mg Tablet PO (08:23)
[2022-10-21] MEDS: folic acid 1 mg Tablet PO (08:23)
[2022-10-21] MEDS: hyDROXYzine 25 mg Capsule 50 MG PO (08:25)
== END 2022-10-21 11:07 | disposition home or self-care (01) | DRG 897 ==
LOC: ER 23:41 → NP 23:47
PROVIDERS: Admitting Provider Psychiatry & Neurology Psychiatry; Emergency Provider Emergency Medicine; PCP Family Medicine; Visit Provider Psychiatry & Neurology Psychiatry
DX: F10.229 Alcohol dependence with intoxication, unspecified (principal); F10.239 Alcohol dependence with withdrawal, unspecified; Y90.7 Blood alcohol level of 200-239 mg/100 ml; F32.A Depression, unspecified; F15.10 Other stimulant abuse, uncomplicated; F12.90 Cannabis use, unspecified, uncomplicated; F41.9 Anxiety disorder, unspecified
CPT/HCPCS: 36415; 71045; 80053; 80306; 80307; 81001; 81025; 85025; 96372; 97150; 97165; 99238; 99285; J3411